=== PATIENT | female | born 1950 | race Caucasian/White ===

== ENCOUNTER 2016-11-07 13:51 | Emergency (ER) | payer MEDICARE ==
[2016-11-07 14:49] LABS: BASOPHILS 0.2 % (0-2); HEMATOCRIT 41.6 % (36.0-48.0); IMMATURE GRANULOCYTES 0.2 % (0-5); LYMPHOCYTES 44.9 % (15-50); MCH 30.7 pg (26.0-34.0); MCHC 36.1 g/dL (31.0-37.0); MCV 85.1 fL (80.0-100.0); MEAN PLATELET VOLUME 10.9 fL (7.4-10.4); MONOCYTES 6.5 % (2-11); NEUTROPHILS 47.2 % (40-80); PLATELET COUNT 130 10x3/uL (130-400); RBC 4.89 10x6/uL (4.00-5.40)
[2016-11-07 14:57] LABS: APPEARANCE CLEAR (CLEAR); BILIRUBIN NEGATIVE (NEGATIVE); COLOR YELLOW (YELLOW); GLUCOSE NEGATIVE (NEGATIVE); KETONE NEGATIVE (NEGATIVE); NITRITE NEGATIVE (NEGATIVE); PROTEIN TRACE mg/dL (NEGATIVE); SPECIFIC GRAVITY 1.025 (1.005-1.020); UROBILINOGEN NORMAL (NORMAL)
[2016-11-07 14:58] LABS: BACTERIA FEW /hpf (NONE SEEN); MUCUS >1+ /lpf (NONE SEEN); RED CELLS - URINE 0-5 /hpf (0-5); WHITE CELLS - URINE 0-5 /hpf (0-5)
[2016-11-07 15:13] LABS: ALBUMIN 4.2 g/dL (3.4-5.0); ANION GAP 16.4 mmol/L (8-16); BILIRUBIN - TOTAL 0.76 mg/dL (0.2-1.3); CALCIUM 10.6 mg/dL (8.5-10.1); CARBON DIOXIDE 25.3 mmol/L (21.0-32.0); CREATININE - SERUM 1.3 mg/dL (0.6-1.3); POTASSIUM - SERUM 3.7 mmol/L (3.5-5.1); PROTEIN - SERUM 8.2 g/dL (6.4-8.2)
== END 2016-11-07 19:25 | disposition home or self-care (01) ==
LOC: D.ER 13:51
PROVIDERS: Emergency Medicine
DX: K52.9 Noninfective gastroenteritis and colitis, unspecified (principal); F17.200 Nicotine dependence, unspecified, uncomplicated; I10 Essential (primary) hypertension

== ENCOUNTER 2017-03-17 10:13 | Day surgery (SDC) | payer MEDICARE ==
--- NOTE | ~2017-03-17 | OP ---
PATIENT NAME: GARRTET CLANCY MEDICAL RECORD: [id number] :46 LOCATION:[facility] ADMISSION DATE: SURGEON: JORDY PEREIRA MD DATE OF OPERATION: 03/17/2017 PREOPERATIVE DIAGNOSIS: Anal mass. POSTOPERATIVE DIAGNOSIS: Anal mass. PROCEDURE: Transanal excision of anal mass. SURGEON: Jordy Pereira MD ACCESS SERVICES REPRESENTATIVE: None. BLOOD LOSS: Minimal. ANESTHESIA: General. COMPLICATIONS: None. The patient was noted to have an anal mass on colonoscopy. This was overlying the hemorrhoid. OPERATIVE COURSE: The patient was conveyed to the operating room electively on 03/17/2017. General anesthesia was induced by the anesthesia staff. The patient was placed in the lithotomy position. The buttocks were taped laterally. The anus and perianal areas were sterilely prepped and draped. U-shaped anal retractors were inserted. The anal mass was easily identifiable and was overlying a hemorrhoid. The patient essentially underwent a single column hemorrhoidectomy, which was an excisional biopsy of this anal mass. The hemorrhoid was grasped. I excised the hemorrhoid utilizing the Harmonic scalpel. Meticulous hemostasis was achieved with the Harmonic scalpel. Submucosal flaps were created bluntly. I then closed the defect with a running-locking 3-0 Vicryl suture. Gelfoam was applied within the anus and lower rectum. A combination of sterile preparation and Marcaine were used to infiltrate the perianal tissues. A topical anesthetic cream was applied to the external hemorrhoids. The patient was then extubated and conveyed to post-anesthesia care unit where she was in stable condition. She will be dismissed home on an analgesic. I will see her in the office in 2 to 3 weeks to discuss the results of the biopsies. TRANSINT:[id number] Voice Confirmation ID: [id number] DOCUMENT ID: [id number] OPERATIVE REPORT [id number] GARRETT CLANCY ROBERT MD at 1019 CC: MANUEL GONZALEZ MD [id number] DICTATION DATE: 03/30/17 1044 ROOM SERVICE MANAGER: 03/30/17 1125 [facility] 03/17/17 [place] [address]
[2017-03-17] MEDS ORDERED: LISINOPRIL-HCTZ1 T13 PO (10:56)
[2017-03-17 10:59] VITALS: BP 117/73; BMI 24.0
[2017-03-17 11:16] LABS: HEMATOCRIT 42.5 % (36.0-48.0); HEMOGLOBIN 15.1 g/dL (12-16); MCH 31.2 pg (26.0-34.0); MCHC 35.5 g/dL (31.0-37.0); MCV 87.8 fL (80.0-100.0); MEAN PLATELET VOLUME 10.3 fL (7.4-10.4); RBC 4.84 10x6/uL (4.00-5.40); RDW 13.6 % (11.5-14.5); WBC 7.1 10x3/uL (4.8-10.8)
[2017-03-17 11:26] LABS: ANION GAP 15.3 mmol/L (8-16); CALCIUM 10.7 mg/dL (8.5-10.1); CARBON DIOXIDE 28.9 mmol/L (21.0-32.0); CREATININE - SERUM 1.4 mg/dL (0.6-1.3); POTASSIUM - SERUM 4.2 mmol/L (3.5-5.1)
== END 2017-03-17 18:15 | disposition home or self-care (01) ==
LOC: D.OPS 10:13
PROVIDERS: Anesthesiology
DX: K64.8 Other hemorrhoids (principal); K62.89 Other specified diseases of anus and rectum; F17.200 Nicotine dependence, unspecified, uncomplicated; I10 Essential (primary) hypertension; J44.9 Chronic obstructive pulmonary disease, unspecified; Z01.812 Encounter for preprocedural laboratory examination

== ENCOUNTER → 2017-06-05 09:37 | Outpatient (CLI) | payer MEDICARE ==
[~2017-06-05 09:37] MED LIST: LISINOPRIL-HCTZ1 T13 PO
== END | disposition home or self-care (01) ==
LOC: D.MRI 09:37
DX: R55 Syncope and collapse (principal)

== ENCOUNTER 2017-06-26 10:49 | Outpatient (CLI) | payer MEDICARE ==
[~2017-06-26] VITALS: Ht 157.5 cm; Wt 53.6 kg
[2017-06-26 11:52] LABS: BASOPHILS 0.2 % (0-2); EOSINOPHILS 1.8 % (0-7); HEMATOCRIT 37.6 % (36.0-48.0); HEMOGLOBIN 13.5 g/dL (12-16); IMMATURE GRANULOCYTES 0.2 % (0-5); LYMPHOCYTES 41.9 % (15-50); MCH 31.7 pg (26.0-34.0); MCHC 35.9 g/dL (31.0-37.0); MCV 88.3 fL (80.0-100.0); MEAN PLATELET VOLUME 9.8 fL (7.4-10.4); MONOCYTES 4.7 % (2-11); NEUTROPHILS 51.2 % (40-80); PLATELET COUNT 174 10x3/uL (130-400); RBC 4.26 10x6/uL (4.00-5.40); RDW 13.4 % (11.5-14.5); WBC 6.1 10x3/uL (4.8-10.8)
[2017-06-26 12:07] LABS: ALBUMIN 4.2 g/dL (3.4-5.0); ANION GAP 14.1 mmol/L (8-16); BILIRUBIN - TOTAL 0.85 mg/dL (0.2-1.3); CALCIUM 10.4 mg/dL (8.5-10.1); CARBON DIOXIDE 26.8 mmol/L (21.0-32.0); POTASSIUM - SERUM 3.9 mmol/L (3.5-5.1); PROTEIN - SERUM 8.6 g/dL (6.4-8.2)
[2017-06-26 12:19] LABS: THYROID STIMULATING HORMONE 0.84 uIU/mL (0.36-3.74)
[2017-06-26 14:18] VITALS: BP 130/79; Ht 157.5 cm; Wt 53.6 kg
== END 2017-06-26 15:14 | disposition home or self-care (01) ==
LOC: D.ER 10:49 → D.OPS 10:49 → EDSTATUS 14:00 → D.OPS 15:14
PROVIDERS: Physician Assistant
DX: K56.41 Fecal impaction (principal); I10 Essential (primary) hypertension; Z01.812 Encounter for preprocedural laboratory examination

== ENCOUNTER → 2018-04-19 09:42 | Outpatient (CLI) | payer OTHER ==
[2017-06-26 14:18] VITALS: BMI 21.6
== END | disposition home or self-care (01) ==
LOC: D.CT 04-18 10:30 → D.RAD 04-18 11:15 → D.CT 09:42
PROVIDERS: ATTEND Internal Medicine Gastroenterology
DX: R10.9 Unspecified abdominal pain (principal); R63.4 Abnormal weight loss; F17.200 Nicotine dependence, unspecified, uncomplicated

== ENCOUNTER → 2019-04-10 08:49 | Outpatient (CLI) | payer OTHER ==
[2019-03-21 21:35] VITALS: BMI 18.3
[~2019-04-10 08:49] MED LIST changes: +ASPIRIN81 MG PO; +LINZESS145 MCG PO; +NAMENDA10 MG PO; +NORVASC5 MG PO; +PRAVACHOL20 MG PO; +REMERON15 MG PO; +TYLENOL W/CODEI1 TAB PO; +VICKS VAPORUB O50 GM TOPICAL; +VOLTAREN100 GM TOPICAL
[2019-04-10 09:54] LABS: BASOPHILS 0.6 % (0-2); EOSINOPHILS 3.1 % (0-7); HEMATOCRIT 34.3 % (36.0-48.0); HEMOGLOBIN 11.4 g/dL (12-16); IMMATURE GRANULOCYTES 0.2 % (0-5); LYMPHOCYTES 36.9 % (15-50); MCH 30.5 pg (26.0-34.0); MCHC 33.2 g/dL (31.0-37.0); MCV 91.7 fL (80.0-100.0); MEAN PLATELET VOLUME 9.8 fL (7.4-10.4); NEUTROPHILS 53.2 % (40-80); PLATELET COUNT 232 10x3/uL (130-400); RBC 3.74 10x6/uL (4.00-5.40); RDW 15.3 % (11.5-14.5); WBC 5.2 10x3/uL (4.8-10.8)
== END | disposition home or self-care (01) ==
LOC: D.LAB 08:49
PROVIDERS: ATTEND Internal Medicine Gastroenterology
DX: K92.2 Gastrointestinal hemorrhage, unspecified (principal)

== ENCOUNTER 2020-05-26 13:53 | Emergency (ER) | payer OTHER ==
[~2020-05-26] VITALS: Ht 165.1 cm; Wt 62.7 kg
[~2020-05-26 13:53] MED LIST changes: +ATIVAN0.5 MG PO; +FOLIC ACID1 MG PO; +LORAZEPAM1 MG/0.5 M SL; +MIRALAX17 GM PO; +Megace ES [CHEMO] PO; +NAMENDA5 MG PO; +NORVASC10 MG PO; +PRAVASTATIN SOD10 MG PO; +SEROQUEL25 MG PO; +THERAGRAN M [BK1 TAB PO; +VITAMIN D PO; +ZOLOFT50 MG PO
[2020-05-26 14:01] VITALS: Ht 165.1 cm; Wt 62.7 kg
[2020-05-26 14:24] LABS: BASOPHILS 0.2 % (0-2); EOSINOPHILS 1.3 % (0-7); HEMATOCRIT 33.2 % (36.0-48.0); HEMOGLOBIN 11.3 g/dL (12-16); IMMATURE GRANULOCYTES 0.5 % (0-5); LYMPHOCYTE ABS# 2.64 10x3/uL (1.18-3.74); LYMPHOCYTES 23.3 % (15-50); MCH 30.5 pg (26.0-34.0); MCV 89.5 fL (80.0-100.0); MEAN PLATELET VOLUME 10.6 fL (7.4-10.4); MONOCYTES 6.4 % (2-11); NEUTROPHIL ABS# 7.72 10x3/uL (1.56-6.13); NEUTROPHILS 68.3 % (40-80); PLATELET COUNT 266 10x3/uL (130-400); RBC 3.71 10x6/uL (4.00-5.40); RDW 15.1 % (11.5-14.5); WBC 11.3 10x3/uL (4.8-10.8)
[2020-05-26 15:16] LABS: ANION GAP 15.4 mmol/L (8-16); CALCIUM 10.3 mg/dL (8.5-10.1); CARBON DIOXIDE 24.2 mmol/L (21.0-32.0); CREATININE - SERUM 1.4 mg/dL (0.6-1.3); POTASSIUM - SERUM 3.6 mmol/L (3.5-5.1)
[2020-05-26 15:16] LABS: BILIRUBIN NEGATIVE (NEGATIVE); KETONE NEGATIVE (NEGATIVE); NITRITE NEGATIVE (NEGATIVE); UROBILINOGEN NORMAL mg/dL (< 2)
[2020-05-26 15:17] LABS: BACTERIA MANY HPF (NONE SEEN); SQUAMOUS EPITHELIAL 0-5 HPF (0-4); WHITE CELLS - URINE 25-50 HPF (0-4)
[2020-05-26 15:21] LABS: ALBUMIN 3.4 g/dL (3.4-5.0); BILIRUBIN - TOTAL 0.6 mg/dL (0.2-1.3)
[2020-05-26 15:22] LABS: TROPONIN-I 0.016 ng/mL (0.000-0.060)
[2020-05-26] MEDS ORDERED: LEVOFLOXACIN500 MG PO ×2 (17:29→17:34)
[2020-05-26 20:24] VITALS: BP 127/67
== END 2020-05-26 20:25 | disposition home or self-care (01) ==
LOC: D.ER 13:53
PROVIDERS: Family Medicine
DX: N39.0 Urinary tract infection, site not specified (principal); R10.9 Unspecified abdominal pain; K59.00 Constipation, unspecified; R11.2 Nausea with vomiting, unspecified; Z86.73 Personal history of transient ischemic attack (TIA), and cerebral infarction without residual deficits; I10 Essential (primary) hypertension

== ENCOUNTER 2020-07-10 19:30 | Inpatient (IN) | payer MEDICARE ==
[~2020-07-10 19:30] MED LIST changes: +LEVOFLOXACIN500 MG PO
[2020-07-10 20:00] VITALS: BP 145/70
--- NOTE | 2020-07-10 20:00 | NUR ---
PT ADMIT TO UNIT FOR AGGRESSION AT HER HALFWAY. PT IS A DNR AND PAPERWORK IS IN THE CHART. ATTEMPTED TO GET CONSENT FOR HER [facility] AT [phone]. LEFT VOICEMAIL. PT ARRIVED TO UNIT WITH EMS. SWINGING AND PUNCHING AT STAFF THEY ATTEMPTED TO ASSIST HER INTO A CHAIR. UNABLE TO REDIRECT. UNABLE TO FOLLOW COMMANDS. PACING AND ATTEMPTING TO BITE STAFF. ADMINISTERED PRN HALDOL AND ATIVAN FOR UNSAFE PSYCHOTIC BEHAVIOR AND ANXIETY. OBSERVED HER ATTEMPTING TO PICK AT THE FLOOR TILES. PT OBSERVED IN THE HALLWAY DEFACATING IN THE FLOOR. ASSISTED PT WITH CLEANING SELF UP AND PLACED IN BED. MONITOR FOR SAFETY.
--- NOTE | 2020-07-10 20:29 | NUR ---
DR DODD CALLED TO REQUEST THAT HE BE THIS [facility] PHYSICIAN.
--- NOTE | 2020-07-10 20:30 | NUR ---
PT STILL PACING BUT LESS AGGRESSIVE WITH REDIRECTION. NO DISTRESS NOTED. YELLS AT STAFF WITH ASSISTANCE.
[2020-07-10] MEDS ORDERED: BUSPAR5 MG PO (20:52)
[2020-07-10] MEDS ORDERED: VITAMIN D325 MC1 PO (20:52)
[2020-07-10] MEDS ORDERED: REMERON15 MG PO (20:53)
[2020-07-11 00:35] VITALS: BP 145/70; BMI 25.0
[2020-07-11 08:32] LABS: BASOPHILS 0.3 % (0-2); EOSINOPHILS 0.3 % (0-7); HEMATOCRIT 37.7 % (36.0-48.0); HEMOGLOBIN 12.6 g/dL (12-16); LYMPHOCYTES 24.1 % (15-50); MCH 33.7 pg (26.0-34.0); MCHC 33.4 g/dL (31.0-37.0); MCV 101.2 fL (80.0-100.0); MEAN PLATELET VOLUME 7.3 fL (7.4-10.4); MONOCYTES 5.3 % (2-11); PLATELET COUNT 236 10x3/uL (130-400); RBC 3.73 10x6/uL (4.00-5.40); RDW 17.4 % (11.5-14.5); WBC 9.5 10x3/uL (4.8-10.8)
[2020-07-11 09:39] VITALS: BP 142/90
[2020-07-11 09:41] LABS: ALBUMIN 4.6 g/dL (3.4-5.0); ANION GAP 16.8 mmol/L (8-16); BILIRUBIN - TOTAL 0.32 mg/dL (0.2-1.3); CALCIUM 9.9 mg/dL (8.5-10.1); CARBON DIOXIDE 22.6 mmol/L (21.0-32.0); CHOL - HDL RATIO 2.3 ratio (2.3-4.1); CREATININE - SERUM 1.2 mg/dL (0.6-1.3); POTASSIUM - SERUM 4.4 mmol/L (3.5-5.1); THYROID STIMULATING HORMONE 0.82 uIU/mL (0.36-3.74)
[2020-07-11 13:00] VITALS: Wt 61.9 kg
--- NOTE | 2020-07-11 18:14 | NUR ---
ALERT, CALM, COOPERATIVE, MED COMPLIANT. AT MEAL TIME, PATIENT HAS BEEN NOTED TO REACH AND GRAB OTHER PATIENT'S TRAYS, REQUIRING RE-DIRECTION. NO ADVERSE REACTION TO MEDS. NO AGGRESSION SINCE EARLIER IN THE SHIFT. CONTINUE PLAN OF CARE OUTLINED, MONITORING FOR AGGRESSIVE ACTS.
[2020-07-11 22:23] VITALS: BP 147/67
--- NOTE | 2020-07-11 23:08 | NUR ---
PT IS ALERT AND ORIENTED TO SELF ONLY. POOR INSIGHT INTO HER SITUATION. SHE IS RECEIVED IN THE HALLWAY OUTSIDE THE NURSES STATION IN A GERICHAIR. SHE IS RESTLESS AND ATTEMPTS TO GET OUT OF THE CHAIR WITHOUT ASSIST. RESISTANT TO REDIRECTION. MISINTERPRETS STAFFS ASSISTANCE. COMPLIANT WITH ALL MEDICATIONS. MONITOR FOR SAFETY.
[2020-07-12 09:21] VITALS: BP 173/94
[2020-07-12 09:44] VITALS: BP 173/87
--- NOTE | 2020-07-12 16:10 | NUR ---
VERY AGGRESSIVE WITH STAFF,HITTING,WILL NOT REDIRECT.ATIVAN 0.5MG AND HALDOL 2MG IM GIVEN PER ORDERS.
--- NOTE | 2020-07-12 16:40 | NUR ---
GOOD RESPONSE TO ATIVAN AND HALDOL.RESTING QUIETLY IN RECLINER.
--- NOTE | 2020-07-12 17:08 | NUR ---
Rec'd patient this am in the hallway in a reclining w/c. She is non-compliant with medications and will spit them at the staff or take her fingers and take the med out or lick her fingers over and over. Her spouse Al called at 0745 requested her condition, password verified, and he states she likes to sleep on the floo and she does not use utensils but eats everything with her fingers. She is a/o to person only. She sat with the group but cognitively under to participate today. She is restless today.
--- NOTE | 2020-07-12 20:06 | NUR ---
RECEIVED IN HALLWAY OUTSIDE OF NURSES STATION. SITTING WITH PEERS AT HER SIDE. CALM AND COOPERATIVE WITH CARE AND ASSESSMENT. NO SIGNS OF AGGRESSION. REDIRECT AND REORIENT NEEDED. CONTINUES TO SIT CALMLY IN HALLWAY. CONTINUE PLAN OF CARE.
[2020-07-12 21:48] VITALS: BP 123/71
--- NOTE | 2020-07-13 08:00 | NUR ---
REC'D PT IN RECLINING CHAIR BY THE NURSES STATION. AWAKE AND ALERT TO PERSON ONLY. ASSESSMENT COMPLETED. PT IS AGGRESSIVE WITH CARE. PT ATTEMPTS TO SLAP AND BITE AT STAFF. REDIRECT AND REORIENT NEEDED. PRESCRIBED MEDICATIONS PROVIDED ORDERED. MED COMPLINAT. FALL PRECAUTIONS IN PLACE. WILL CPOC.
--- NOTE | 2020-07-13 08:58 | NUR ---
fruit harvest worker got a call phone call from Mr. Chaves requesting update on patient. fruit harvest worker discussed behaviors patient had demonstrated since intake. fruit harvest worker went over visitation guidelines and suggested visitations do not start until patient becomes more stable. Mr. Chaves stated [facility] will accept patient back. No other needs were voiced at this time.
--- NOTE | 2020-07-13 19:55 | NUR ---
RECEIVED IN HALLWAY. SITTING QUIETLY WITH PEERS AT HER SIDE. CALM AND COOPERATIVE WITH CARE AND ASSESSMENT. NO SIGNS OF AGGRESSION. REDIRECT AND REORIENT NEEDED. CONTINUES TO SIT CALMLY IN DAYROOM. CONTINUE PLAN OF CARE.
[2020-07-13 20:00] VITALS: BP 157/69
[2020-07-14 07:15] LABS: RAPID PLASMA REAGIN Non Reactive (Non Reactive)
--- NOTE | 2020-07-14 08:00 | NUR ---
REC'D PT IN HALLWAY SITTING IN W/C BY THE NURSES STATION. AWAKE AND ALERT TO PERSON ONLY. CALM AND COOPERATIVE WITH ASSESSMENT. PRESCRIBED MEDS PROVIDED ODERED. MED COMPLIANT. PT IS AGGRESSIVE, COMBATIVE, AND EASILY AGITATED. REDIRECT AND REORIENT NEEDED. UNABLE TO REDIRECT AT TIMES. FALL PRECAUTIONS IN PLACE FOR SAFETY. WILL CPOC.
[2020-07-14 08:02] VITALS: BP 169/91
--- NOTE | 2020-07-14 11:52 | PN ---
PATIENT:GARRETT CLANCY MEDICAL RECORD: [id number] LOCATION:[facility] ADMISSION DATE: 07/10/20 PROGRESS NOTE DATE OF SERVICE: 07/13/2020 SUBJECTIVE: The patient's case was discussed with staff. She has no new complaint. OBJECTIVE: The patient is only oriented to person. She has been very agitated. She is disorganized with almost no insight about her situation. She has been extremely agitated at the detention, biting, fighting with staff members, refusing to sleep in a bed and insisting to sleep on the floor, and defecating on the floor, becoming combative when the staff tried to remove her from the soiled area. Since she has been here, she has required daily p.r.n. medications in addition to the scheduled medications because of her behaviors. ASSESSMENT: Vascular dementia. PLAN: The patient is going to be treated with Geodon on a scheduled basis. The Seroquel has not been effective and will be discontinued. TRANSINT:[id number] Voice Confirmation ID: [id number] DOCUMENT ID: [id number] SENG HERNÁNDEZ MD at 1152 CC: [id number] DICTATION DATE: 07/13/20 1554 PASTE UP ARTIST: 07/13/20 2019 [place] [address]
--- NOTE | 2020-07-14 19:59 | NUR ---
RECEIVED IN DAYROOM. SITTING THE TABLE WITH PEERS. CALM AND COOPERATIVE WITH CARE AND ASSESSMENT. NO SIGNS OF AGGRESSION. REDIRECT AND REORIENT NEEDED. CONTINUES TO SIT CALMLY IN DAYROOM. CONTINUE PLAN OF CARE.
--- NOTE | 2020-07-15 08:11 | NUR ---
REC'D PT IN HALLWAY SITTING IN RECLINING CHAIR. AWAKE AND ALERT TO PERSON ONLY. CALM AND COOPERATIVE WITH ASSESSMENT. PT HAS LITTLE TO NO INSIGHT INTO HER SITUATION. PT IS CONFUSED AND HAS DIFFICULTY WITH VERBAL INSTRUCTIONS. REDIRECT AND REORIENT NEEDED. NO AGGRESSION NOTED AT THIS TIME. FALL PRECAUTIONS IN PLACE. WILL CPOC.
--- NOTE | 2020-07-15 13:54 | NUR ---
Nutrition Re-Assessment Diet: Regular PO intake: 100% x last 8 meals Last BM: 07/11/20 Wt: 146# (07/12/20); Admit Wt: 150# (07/10/20)- noted -4#, will continue to monitor. Meds noted: travis hernandez Labs reviewed Estimated nutrition needs: 1700-2040cal (25-30kcal/kg Act), 75-88gms protein (1.1-1.3gms/kg), 1700-2050mL fluid (or per MD) Nutrition diagnosis: Self feeding difficulty r/t foods must be cut into bite sizes, she does not know how to use a spoon or fork AEB MD notes. Nutrition goals: -PO intake =/>75% meals -Meet fluid needs without fluid overload -Stable weight DHS Recommendations/Interventions: -Recommend continue Regular diet with foods cut to bite size. Will continue to honor food preferences. -RD will continue to monitor PO intake and wt trend. -Offer oral nutrition supplements if PO intake trends <65%. -RD will follow-up within 7 days.
--- NOTE | 2020-07-15 14:02 | PN ---
PATIENT:GARRETT CLANCY MEDICAL RECORD: [id number] LOCATION:[facility] ADMISSION DATE: 07/10/20 PROGRESS NOTE DATE OF SERVICE: 07/14/2020 SUBJECTIVE: The patient's case was discussed with staff. She has no new complaint. OBJECTIVE: The patient has been very disorganized. She is only oriented to person. She has been hitting, biting, and aggressive with staff. ASSESSMENT: Dementia. PLAN:. The patient does not have an urinalysis because she would not allow us to check one. Her WBC count is within normal limits. She has no complaints or symptoms of a urinary tract infection and in my opinion, it would be traumatic to hold her and catheterize her simply as a means of screening. The patient is experiencing behavioral disruption secondary to disease progression and this is not in my opinion secondary to a urinary tract infection. TRANSINT:[id number] Voice Confirmation ID: [id number] DOCUMENT ID: [id number] SENG HERNÁNDEZ MD at 1402 CC: [id number] DICTATION DATE: 07/14/20 1530 NUCLEAR CHEMISTRY TECHNICIAN: 07/15/20 0023 ADM IN [facility] [address] [place] [address]
--- NOTE | 2020-07-15 16:00 | NUR ---
PATIENT BIT ANOTHER PATIENT ON THE ARM. PATIENT UNABLE TO BE REDIRECTED. PATIENTS SEPERATED FROM EACH OTHER.
[2020-07-15 20:00] VITALS: BP 144/71
--- NOTE | 2020-07-15 21:20 | NUR ---
PT IS ALERT AND ORIENTED TO SELF ONLY. RECEIVED IN THE HALLWAY OUTSIDE OF THE NURSES STATION IN A GERICHAIR. CALM AND COMPLIANT WITH MEDICATIONS. PT OBSERVED CHEWING STYROFOAM CUP. REMOVED CUP FROM PT AND HAD PT SPIT OUT TWO PIECES OF THE CUP. DIFFICULT TO REDIRECT. GARBLED SPEECH. MONITOR FOR SAFETY.
--- NOTE | 2020-07-16 08:14 | NUR ---
Patient is kicking, slapping at, and attempting to bite staff. She is not redirectable and cannot follow directions. After redirection with foods, fluids, and one to one, per MD order...Ativan and Haldol IM given.
--- NOTE | 2020-07-16 14:13 | NUR ---
Rec'd patient this am sitting in the hallway in a reclining w/c. She was med compliant and took her meds crushed and placed in applesauce. She became aggressvie this am as she was kicking, slapping, and attempting to bite at staff. She was nonredirectable. Ativen and Haldol IM given. She will sit at the table in the dayroom and will attempt to lick the table, whe contantly is licking her fingers, she also will try to lick and eat her clothing. She is disorientated to place, time, and situation. she cannot follow any directons. She is a fall risk. She has multi bruises on various parts of her upper and lower ext. She did not attend group.
--- NOTE | 2020-07-16 16:51 | PN ---
PATIENT:GARRETT CLANCY MEDICAL RECORD: [id number] LOCATION:[facility] ADMISSION DATE: 07/10/20 PROGRESS NOTE DATE OF SERVICE: 07/15/2020 SUBJECTIVE: The patient's case was discussed with staff. She has no new complaint. OBJECTIVE: The patient is severely impaired cognitively. She has been trying to bite the patient next to her. She does not appear to be angry or have any sort of a conscious deliberate reason for doing this and I cannot rationally discuss this with her because of her advanced dementia. ASSESSMENT: Vascular dementia. PLAN: This patient's situation is grave. The disease process is advanced. At this point, my treatment goals would be to make her manageable in a long-term care setting and hopefully just have her aggressive behaviors confined a personal care. I have reviewed her medicines and will maintain them for today. TRANSINT:[id number] Voice Confirmation ID: [id number] DOCUMENT ID: [id number] SENG HERNÁNDEZ MD at 1651 CC: [id number] DICTATION DATE: 07/15/20 1616 PATTERNMAKER APPRENTICE WOOD: 07/15/20 1717 ADM IN [facility] [address] [place] [address]
--- NOTE | 2020-07-16 18:57 | NUR ---
STAFF MEMBERS 3X TO SHOWER PT AT THIS TIME. PT WAS RESISTIVE WITH CARE, COMBATIVE. PT CONT TO ATTEMPT TO FALL FORWARD.
--- NOTE | 2020-07-16 19:26 | NUR ---
RECEIVED IN HALLWAY OUTSIDE OF NURSES STATION WITH EYES CLOSED. CALM AND COOPERATIVE WITH CARE AND ASSESSMENT. NO SIGNS OF AGGRESSION. REDIRECT AND REORIENT NEEDED. CONTINUES TO SIT CALMLY IN HALLWAY. CONTINUE PLAN OF CARE.
[2020-07-16 20:00] VITALS: BP 132/81
--- NOTE | 2020-07-17 18:37 | NUR ---
PT SITTING IN CHAIR AT THIS TIME. NO AGGRESSION NOTED. ALERT TO SELF ONLY. CONFUSED. REDIRECT AND REORIENT. PT IS DIFFICULT TO REDIRECT. NO INSIGHT TO SITUATION NOTED. ATTEMPTS TO EAT ANYTHING IN REACH. UNABLE TO REDIRECT THIS BEHAVIOR. CAN NOT MAKE NEEDS KNOWN. REQUIRES FULL ASSISTANCE WITH ADLS. CONT TO ENCOURAGE MEALS AND FLUIDS. CHAIR ALARM IN PLACE AND ACTIVE. WILL CONT PLAN OF CARE.
--- NOTE | 2020-07-17 19:24 | NUR ---
RECEIVED IN HALLWAY OUTSIDE OF NURSES STATION. SITTING IN A RECLINING CHAIR. RESTLESS. RESISTANT TO REDIRECTION AT TIMES. COOPERATIVE WITH CARE AND ASSESSMENT. NO SIGNS OF AGGRESSION. REDIRECT AND REORIENT NEEDED. CONTINUES TO SIT IN RECLINER IN HALLWAY. CONTINUE PLAN OF CARE.
[2020-07-17 20:00] VITALS: BP 119/60
--- NOTE | 2020-07-18 17:55 | NUR ---
pt sitting in chair. restless. confused. alert to self only. unable to redirect due to low cognitive ablitity. pt does not understand simple commands. staff monitors items given to pt due to pica. compliant with crushed meds, vitals and assessments. can not make needs known. requires complete assistance with adls. chair alarm in place and active. will cont plan of care.
[2020-07-18 20:23] VITALS: BP 109/67
--- NOTE | 2020-07-18 22:38 | NUR ---
PT LAYING IN BED WITH EYES CLOSED. PT IS CALM AND COOPERATIVE AT THIS TIME. CONFUSED. ALERT TO SELF ONLY. CAN NOT AMBULATE. REQUIRES ASSISTANCE WITH ADLS. NO ATTEMPT TO BITE STAFF. POOR REDIRECTION. COMPLIANT WITH CRUSHED MEDS, VITALS AND ASSESSMENTS. BED ALARM IN PLACE AND ACTIVE. WILL CONT PLAN OF CARE.
--- NOTE | 2020-07-19 07:44 | NUR ---
REC'D PT SITTING IN RECLINING CHAIR. PT IS ATTEMPTING TO EAT OR CHEW ANYTHING IN SIGHT AT THIS TIME. HARD TO REDIRECT AT TIMES. REDIRECT AND REORIENT NEEDED. ASSESSMENT COMPLETED AT THIS TIME. AWAKE AND ALERT TO PERSON ONLY. PT HAS LITTLE TO NO INSIGHT INTO HER SITUATION AT THIS TIME. FALL PRECAUTIONS IN PACE FOR SAFETY. WILL CPOC.
--- NOTE | 2020-07-19 19:51 | NUR ---
RECEIVED IN BEDROOM. RESTING IN BED WITH EYES CLOSED. RESPONSD TO VOICE. CALM AND COOPERATIVE WITH CARE AND ASSESSMENT. NO SIGNS OF AGGRESSION. REDIRECT AND REORIENT NEEDED. CONTINUES TO REST QUIETLY IN BED. CONTINUE PLAN OF CARE.
[2020-07-19 20:36] VITALS: BP 113/65
--- NOTE | 2020-07-20 08:14 | NUR ---
REC'D PT IN HALLWAY RESTING IN RECLINING CHAIR. RESPONDS TO VERBAL STIMULI. ALERT TO PERSON ONLY. CALM AND COOPERATIVE WITH ASSESSMENT AT THIS TIME. PT IS CONFUSED. PT HAS LITTLE TO NO INSIGHT INTO HER SITUATION. PT ATTENDS TO CHEW ON ANYTHING IN SIGHT. HARD TO REDIRECT AT TIMES. FALL PRECAUTIONS IN PLACE FOR SAFETY. ALARM IN PLACE AND WORKING. WILL CPOC.
--- NOTE | 2020-07-20 15:46 | PN ---
PATIENT:GARRETT CLANCY MEDICAL RECORD: [id number] LOCATION:[facility] ADMISSION DATE: 07/10/20 PROGRESS NOTE DATE OF SERVICE: 07/16/2020 SUBJECTIVE: The patient's case was discussed with staff. She has no new complaint. OBJECTIVE: The patient denies intent to harm herself or others. She does tolerate her medicines well. She has unfortunately been very agitated. She has required multiple p.r.n. doses of medications. The patient's dementia is very advanced. ASSESSMENT: Dementia. PLAN: As mentioned multiple times, the patient's dementia is very advanced. She is requiring multiple p.r.n. doses of medicine to control her behavior and these behaviors are not limited to personal care. She is aggressive with those around her. She has been eating styrofoam cups and plates and has to be supervised constantly. She tried to eat a plastic fork today. Her prognosis is exceedingly poor and the goal of this treatment will be to use to medicate her sufficiently such that she can be managed in a long-term care setting and to do so without causing excessive sedation that would lead to a pneumonia or some other undesirable side effect. Because of her behaviors today, I am going to increase her Klonopin slightly. I am reluctant to increase the Geodon beyond 40 mg a day, but if I feel that a higher dose of antipsychotic is necessary, I will probably change her to Seroquel. TRANSINT:[id number] Voice Confirmation ID: [id number] DOCUMENT ID: [id number] SENG HERNÁNDEZ MD at 1546 CC: [id number] DICTATION DATE: 07/16/201716 INSPECTOR PENETRANT: 07/16/20 1837 ADM IN [facility] [address] [place] [address]
[2020-07-20 20:00] VITALS: BP 123/68
--- NOTE | 2020-07-20 20:29 | NUR ---
RECEIVED IN DAYROOM. SITTING IN A CHAIR WITH PEERS AT HER SIDE. CALM AND COOPERATIVE WITH CARE AND ASSESSMENT. NO SIGNS OF AGGRESSION. REDIRECT AND REORIENT NEEDED. CONTINUE PLAN OF CARE.
--- NOTE | 2020-07-21 12:01 | NUR ---
REC'D PT IN HALLWAY SITTING IN RECLINING CHAIR. AWAKE AND ALERT TO PERSON ONLY. CALM AND COOPERATIVE WITH ASSESSMENT. PRESCRIBED MEDS PROVIDED ORDERED. MED COMPLIANT. PT COMBATIVE [facility] STAFF DURING CARE AND SHOWER THIS MORNING. REDIRECT AND REORIENT NEEDED. FALL PRECAUTIONS IN PLACE FOR SAFETY. WILL CPOC.
--- NOTE | 2020-07-21 14:41 | PN ---
PATIENT:GARRETT CLANCY MEDICAL RECORD: [id number] [facility] AD[facility]ION DATE: 07/10/20 PROGRESS NOTE DATE OF SERVICE: 07/20/2020 The patient's case was discussed with staff. She has no new complaint. OBJECTIVE: The patient denies intent to harm herself or others. She generally tolerates her medicines well. She is sleeping and eating well. PLAN: I am going to reduce the scheduled dose of Klonopin slightly. TRANSINT:[id number] Voice Confirmation ID: [id number] DOCUMENT ID: [id number] SENG HERNÁNDEZ MD at 1441 CC: [id number] DICTATION DATE: 07/20/20 1653 EXECUTIVE SECRETARY SOCIAL WELFARE: 07/20/20 2318 ADM IN [place] [id number] [place] [address]
--- NOTE | 2020-07-21 16:45 | NUR ---
parish worker met with patient's [id number]-ih-lya and discussed patient's condition as of date. parish worker discussed disease progression, decreased aggression, and patient being at this stage of severe dementia. parish worker explained that patient will eat items that are in front of her if allowed such as a Styrofoam cup or plastic. parish worker stated state paperwork was done to assist patient going back to custodial today. parish worker also stated [facility] is [facility] to [facility] patient back. Patient continues to be aggressive with ADLs however the aggressive episodes are not as extreme. Patient's [id number] was feeding patient Jell-O at the time of the meeting and patient was receiving it well. No other needs were voiced at this time.
--- NOTE | 2020-07-21 19:29 | NUR ---
RECEIVED IN HALLWAY OUTSIDE OF NURSES STATION. RESTING EYES CLOSED IN RECLINER. ATTEMPTS TO HIT AND BITE DURING CARE. REDIRECT AND REORIENT NEEDED. CONTINUES TO SIT IN RECLINER. CONTINUE PLAN OF CARE.
[2020-07-21 20:00] VITALS: BP 117/75
[2020-07-22 08:00] VITALS: BP 117/81
--- NOTE | 2020-07-22 09:52 | NUR ---
Nutrition Re-Assessment Diet: Regular PO intake: 75-100% most meals Last BM: 07/18/20 x 2 Wt: 139.8# (07/19/20); Admit Wt: 150# (07/10/20)- noted -10# weight change, however RD questions accuracy of admit weight. Weight history reviewed and noted that patient was ~138-143# last hospital stay vs fluid status changes. Meds noted: probiotics, linzess, miralax No new chem labs Estimated nutrition needs: 1600-1925kcal (25-30 Act), 70-83gms protein (1.1-1.3gms/kg), 1600-1925mL fluid (or per MD) Nutrition diagnosis: Unintented weight loss r/t unknown cause at this time fluid vs inaccurate weight vs actual weight loss AEB recorded weight of -10.2# since admit. Nutrition goals: -PO intake =/>75% meals -Meet fluid needs without fluid overload -Dry weight stable Recommendations/Interventions: -Recommend continue current diet and foods cut as needed. Will continue to honor food preferences. -RD will continue to monitor PO intake and wt trend -RD will follow-up within 7 days.
--- NOTE | 2020-07-22 12:10 | NUR ---
Rec'd patient this am sitting up in the hallway in a reclining w/c. She has been med compliant and takes meds crushed and placed in food. She is a/o to name as she will look at you when her name is called. She speaks in a low toned, muffuled voice that it is diff. to understand her. She sits and often moans. She attempts to put different objects into her mouth such as her gown or blankets and she also will use her finger to wipe the table and then will lick the finger. She has taken a nap this morning and has set with the group but cannot participate. She is not able to be directed or redirected. ABT eye drops for conjuctivities given this am. She has scattered brusing on her uppper and lower exts. She is combative with ADL care and at any point she feels she is being pressured to complete a task. She will occ. attempt to undress herself and staff will attempt to redirect her and will offer positive feedback when behavior is attempted.
--- NOTE | 2020-07-22 15:23 | NUR ---
JOSE HARVEY CALLED TO CHECK ON PT AT THIS TIME.
--- NOTE | 2020-07-22 15:35 | PN ---
PATIENT:GARRETT CLANCY MEDICAL RECORD: [id number] LOCATION:[facility] ADMISSION DATE: 07/10/20 PROGRESS NOTE DATE OF SERVICE: 07/21/2020 SUBJECTIVE: The patient's case was discussed with staff. She has no new complaint. OBJECTIVE: The patient is confused, but has not been aggressive today. She is sleeping and eating well, and it appears that her agitation is primarily for the past day at least exclusively limited to personal care. ASSESSMENT: Vascular dementia. PLAN: I have reviewed current medicines, and given the advanced state of her dementia if combativeness and agitation restricted to only personal care, I intend to probably leave these medicines as they are and would anticipate transitioning her out of the hospital soon. TRANSINT:[id number] Voice Confirmation ID: [id number] DOCUMENT ID: [id number] SENG HERNÁNDEZ MD at 1535 CC: [id number] DICTATION DATE: 07/21/20 1546 JAPANESE TUTOR: 07/21/20 1636 ADM IN [facility] [address] [place] [id number]
--- NOTE | 2020-07-22 17:58 | NUR ---
She has displayed combative behaviors today.
[2020-07-22 20:00] VITALS: BP 128/90
--- NOTE | 2020-07-23 02:21 | NUR ---
B)RECEIVED PATIENT SITTING OUTSIDE THE NURSE'S STATION. RESTLESS AND WILL THROW HER LEGS OVER THE CHAIR ARMS. CONFUSED AND ORIENTED TO SELF ONLY. WITHDRAWN AND DOES NOT INTERACT WITH OTHERS. DOES NOT FOLLOW TOPIC OF CONVERSATION IE "YEAH BECAUSE THEY CAN'T THEM. I DON'T KNOW THAT I'M SORRY. PUTTING HER FINGERS IN HER MOTH. DIFFICULTY FOLLOWING VERBAL INSTRUCTION. I)ADMINISTER MEDS AND MONITOR COMPLIANCE. REORIENT NEEDED. R)MED COMPLIANT. REQUIRES CRUSHED. POOR REORIENTATION DUE TO IMPAIRED ABILITY TO COMPREHEND, PROCESS AND RETAIN INFORMATION. P)CONTINUE POC AND PROVIDE SAFE ENVIRONMENT.
[2020-07-23 08:42] VITALS: BP 116/53
--- NOTE | 2020-07-23 12:49 | NUR ---
Rec'd patient this am sitting in a reclining w/c in the hallway. She is med compliant and takes her meds crushed in foods. She is a/o to person only. She attempts to eat and chew on her gown, linen, or syrofoam. She is not directable or redirectable. She is very confused. She can be combative with ADL care. She sits during group but participates very little. She naps ofte.
--- NOTE | 2020-07-23 14:48 | PN ---
PATIENT:GARRETT CLANCY MEDICAL RECORD: [id number] LOCATION:[facility] ADMISSION DATE: 07/10/20 PROGRESS NOTE DATE OF SERVICE: 07/22/2020 SUBJECTIVE: The patient's case was discussed with staff. She has no new complaint. OBJECTIVE: The patient slept very well last night. She is eating adequately and denies that she would seek to harm herself or others. Her Klonopin is perhaps a little strong and I am going to reduce it. ASSESSMENT: Vascular dementia. PLAN: The patient's Klonopin will be tapered slightly. I am going to maintain her on her other medications. TRANSINT:[id number] Voice Confirmation ID: [id number] DOCUMENT ID: [id number] SENG HERNÁNDEZ MD at 1448 CC: [id number] DICTATION DATE: 07/22/20 1616 HUMAN RESOURCES RECEPTIONIST: 07/22/20 1804 ADM IN [place] [id number] [place] [address]
--- NOTE | 2020-07-23 15:06 | NUR ---
VITAL SIGNS: B/P: 133/75, P: 90, R: 20, T:97.5, 02: 95%. PUPILS ROUND AND EQUAL 2 MM. ICEPACK TO FOREHEAD.
--- NOTE | 2020-07-23 15:07 | NUR ---
pt noted on pt on left side. knot noted to left forehead. pt can not voice pain. Ice pack held to forehead to assist with swelling. staff assisted pt into chair. contacted Alex Galindo APRN. awaiting callback. nurse notified unit assistant. nurse called spouse Gilmar Chaves in regards to pt fall at this time. nurse stated when any new orders would be avaliable this nurse would notify him of information. he verbalizied understanding. he stated she had been having really bad falls and she moves quick. he stated he would be here for visitation. nurse notified of injuries to left forehead. he voiced understanding.
--- NOTE | 2020-07-23 15:49 | NUR ---
NEUROCHECKS VITAL SIGNS: 115/53, P: 90. NO S/SX OF PAIN NOTED.
[2020-07-23 19:30] VITALS: BP 138/87
--- NOTE | 2020-07-24 02:15 | NUR ---
B) Patient is alert and oriented to person, calm and quiet this shift, patient fell on previous shift and has a bruise on her left forehead, I) Adminstered scheduled medications as ordered, Neuro checks, [id number] for safety, R) Mediaction compliant, resting now quietly in her bed, P) Continue plan of care.
[2020-07-24 08:00] VITALS: BP 156/70
--- NOTE | 2020-07-24 13:38 | PN ---
PATIENT:GARRETT CLANCY MEDICAL RECORD: [id number] LOCATION:[facility] ADMISSION DATE: 07/10/20 PROGRESS NOTE DATE OF SERVICE: 07/23/2020 SUBJECTIVE: The patient's case was discussed with staff. She has no new complaint. OBJECTIVE: The patient is only oriented to person. Her dementia is advanced. She is sleeping reasonably well and is eating adequately. She has been somewhat agitated, but not to a level that is required p.r.n. medication. ASSESSMENT: Vascular dementia. PLAN: Current medicines have been reviewed and will be maintained. Her long-term prognosis is guarded. TRANSINT:[id number] Voice Confirmation ID: [id number] DOCUMENT ID: [id number] SENG HERNÁNDEZ MD at 1338 CC: [id number] DICTATION DATE: 07/23/20 1637 CLAY CARMAN: 07/23/20 194 ADM IN [facility] [address] [place] [address]
--- NOTE | 2020-07-24 16:29 | NUR ---
Rec'd patient this am sitting up in a reclining w/c. She will look at you when you call her name.She takes her meds crushed and placed in food. She attempted to put multiple objects in her mouth and lick her fingers.She has a blue healing bruise to her left forehead. She has been sitting up in her reclining w/c and attempts to turn herself sideways in the chair. She has pressure sensitive alarm to her w/c. It is present and functioning. She has sat with the group but unable to participate.
--- NOTE | 2020-07-24 21:06 | NUR ---
PT IS ALERT AND ORIENTED TO SELF ONLY. POOR INSIGHT INTO HER SITUATION. GARBLED SPEECH. UNABLE TO FOLLOW COMMANDS. COMPLIANT WITH ALL MEDICATIONS. ASSISTED INTO BED. MONITOR FOR SAFETY. BED ALARM ON AND WORKING.
[2020-07-25 09:11] VITALS: BP 161/88
--- NOTE | 2020-07-25 12:43 | PN ---
PATIENT:GARRETT CLANCY MEDICAL RECORD: [id number] LOCATION:[facility] ADMISSION DATE: 07/10/20 PROGRESS NOTE DATE OF SERVICE: 07/24/2020 SUBJECTIVE: The patient's case was discussed with staff. She has no new complaint. OBJECTIVE: The patient is in good behavioral control with poor insight about her situation. She will be maintained on current medications. I anticipate she can be discharged soon. TRANSINT:[id number] Voice Confirmation ID: [id number] DOCUMENT ID: [id number] SENG HERNÁNDEZ MD at 1243 CC: [id number] DICTATION DATE: 07/24/20 1403 OUTSIDE SALESMAN: 07/24/20 1523 ADM IN [place] [id number] [place] [address]
--- NOTE | 2020-07-25 18:24 | NUR ---
ORIENTED TO SELF ONLY.COMPLIANT WITH MEDS.MEDS CRUSHED AND GIVEN IN PUDDING.SPOON FED PER STAFF.IS TOTALLY DEPENDANT ON STAFF FOR ADL.WILL EAT ANYTHING IN REACH,STYROFOAM,CHEWS ON HER CLOTHES,ETC.WILL CONTINUE WITH CURRENT PLAN OF CARE,MONITOR FOR CHANGES AND SAFETY.
[2020-07-25 20:48] VITALS: BP 119/96
--- NOTE | 2020-07-25 23:11 | NUR ---
PT IS ALERT AND ORIENTED TO SELF. POOR INSIGHT INTO SITUATION. RECEIVED IN A GERICHAIR OUTSIDE THE NURSES STATION. RESTLESS AT TIMES. COMPLIANT WITH ALL MEDICATIONS. ATTEMPTS TO EAT ANYTHING NEAR HER MOUTH. RESISTANT TO REDIRECTION. BED ALARM ON AND WORKING. MONITOR FOR SAFETY.
[2020-07-26 10:31] VITALS: BP 149/90
--- NOTE | 2020-07-26 14:30 | PN ---
PATIENT:GARRETT CLANCY MEDICAL RECORD: [id number] LOCATION:[facility] ADMISSION DATE: 07/10/20 PROGRESS NOTE DATE OF SERVICE: 07/25/2020 SUBJECTIVE: The patient's case was discussed with staff. She has no new complaint. OBJECTIVE: The patient denies intent to harm herself or others. She is tolerating her medicines well. ASSESSMENT: Dementia. PLAN: Current medicines have been reviewed and will be maintained. Long-term prognosis is guarded. TRANSINT:[id number] Voice Confirmation ID: [id number] DOCUMENT ID: [id number] SENG HERNÁNDEZ MD at 1430 CC: [id number] DICTATION DATE: 07/25/20 1346 SCREENING NURSE: 07/25/20 1428 ADM IN [place] [id number] [place] [id number]
--- NOTE | 2020-07-26 18:25 | NUR ---
ALERT, CALM, CONFUSED, COOPERATIVE. MEDS ADMIN PER ORDERS WITH COMPLETE MED COMPLIANCE NOTED. NO ADVERSE REACTION TO MEDS. APPETITE GOOD, CONTINUES TO ATTEMPT TO EAT NON-EDIBLE OBJECTS SUCH CUPS, NAPKINS, ETC., REQUIRING CLOSE SUPERVISION. NO AGGRESSION NOTED. CONTINUE POC DIRECTED.
--- NOTE | 2020-07-26 20:30 | NUR ---
RECEIVED IN RECLINER OUTSIDE OF NURSES STATION. SITTING CALMLY WITH EYES CLOSED. CALM AND COOPERATIVE WITH CARE AND ASSESSMENT. NO SIGNS OF AGGRESSION. REDIRECT AND REORIENT NEEDED. CONTINUES TO REST CALMLY IN HALLWAY. CONTINUE PLAN OF CARE.
[2020-07-27 08:00] VITALS: BP 118/73
--- NOTE | 2020-07-27 08:00 | NUR ---
Received patient sitting in reclining chair by the nurses station. Calm and cooperative with assessment at this time. Awake and alert to person only. Prescribed medications provided as ordered. Med compliant with meds crushed in applesauce. Patient is calm at this time. Redirect and reorient as needed. Fall precautions in place for safety. Will continue plan of care.
--- NOTE | 2020-07-27 11:01 | NUR ---
NUTRITION FOLLOW UP: COMMENTS: Patient eating well for meals and snacks. No recent significant wt changes. No new labs since 07/18. DIET: Regular Diet PO INTAKE: 60 points avg for last 9 meals, 100% x last 3 snacks WEIGHT: 07/26-136 lbs; 07/22-138 lbs BM: x 1 on 07/27 SIG MEDS: Vit B12, Senokot, Probiotic, Vit D, Miralax, Folic Acid SIG LABS: No new labs since 07/18 RECOMMENDATIONS: Continue Regular Diet as tolerated Offer nutritional supplements if PO intake becomes < 50% avg Assistance with meal as needed RD to re-assess patient on 07/29
--- NOTE | 2020-07-27 13:46 | PN ---
PATIENT:GARRETT CLANCY MEDICAL RECORD: [id number] LOCATION:[facility] ADMISSION DATE: 07/10/20 PROGRESS NOTE DATE OF SERVICE: 07/26/2020 SUBJECTIVE: The patient's case was discussed with staff. She has no new complaint. OBJECTIVE: The patient is in good behavioral control with limited insight about her situation. ASSESSMENT: Dementia. PLAN: Current medicines have been reviewed. Brief supportive and educational interventions were made. She may be transitioned out of the hospital soon if this level of improvement continues. TRANSINT:[id number] Voice Confirmation ID: [id number] DOCUMENT ID: [id number] SENG HERNÁNDEZ MD at 1346 CC: [id number] DICTATION DATE: 07/26/20 1404 POWER SHOVEL MECHANIC: 07/26/20 193 ADM IN [facility] [address] [place] [address]
--- NOTE | 2020-07-27 15:36 | NUR ---
CECELIA alerted family of discharge tomorrow to [facility]. Pt will be referred to [facility] for follow up care at [facility].
[2020-07-27] MEDS ORDERED: LISINOPRIL10 MG PO (15:49)
[2020-07-27] MEDS ORDERED: NAMENDA5 MG PO (15:50)
[2020-07-27] MEDS ORDERED: ACETAMINOPHEN325 MG PO (15:50)
[2020-07-27] MEDS ORDERED: ZOLOFT50 MG PO (15:51)
[2020-07-27] MEDS ORDERED: GEODON20 MG PO (15:51)
[2020-07-27] MEDS ORDERED: KLONOPIN0.5 MG PO (15:51)
[2020-07-27] MEDS ORDERED: VIGAMOX3 ML LEFT EYE (15:52)
[2020-07-27] MEDS ORDERED: FLORAJEN DIGES1 EACH PO (15:52)
[2020-07-27] MEDS ORDERED: LINZESS145 MCG PO (15:52)
[2020-07-27] MEDS ORDERED: VITAMIN B-12500 MCG PO (15:53)
[2020-07-27] MEDS ORDERED: Senokot TAB PO (15:53)
[2020-07-27] MEDS ORDERED: MUPIROCIN22 GM TOPICAL (15:53)
[2020-07-27 20:01] VITALS: BP 152/69
--- NOTE | 2020-07-27 20:50 | NUR ---
RECEIVED IN HALLWAY OUTSIDE OF NURSES STATION. RESTING QUIETLY WITH EYES OPEN. CALM AND COOPERATIVE WITH CARE AND ASSESSMENT. NO SIGNS OF AGGRESSION. REDIRECT AND REORIENT NEEDED. CONTINUES TO REST QUIETLY IN HALLWAY. CONTINUE PLAN OF CARE.
--- NOTE | 2020-07-28 08:26 | NUR ---
REC'D PATIENT SITTING RECLINING CHAIR IN HALLWAY BY NURSES STATION. CALM AND COOPERATIVE WITH ASSESSMENT AT THIS TIME. PATIENT IS CONFUSED AT THIS TIME. PATIENT HAS LITTLE TO NO INSIGHT INTO HIS SITUATION AT THIS TIME. PATIENT HAS A HARD TIME COMPREHENDING VERBAL INSTRUCTIONS. REDIRECT AND REORIENT NEEDED. FALL PRECAUTIONS IN PLACE FOR SAFETY. WILL CONTINUE PLAN OF CARE.
--- NOTE | 2020-07-28 11:00 | NUR ---
PATIENT DISCHARGED TO [facility]. TRANSPORTED VIA [facility]. DISCHARGE PAPERWORK FAXED AND HARD COPY SENT WITH PATIENT. PERSONAL BELONGINGS SENT WITH PATIENT.
--- NOTE | 2020-07-28 14:57 | PN ---
PATIENT:GARRETT CLANCY MEDICAL RECORD: [id number] LOCATION:[facility] ADMISSION DATE: 07/10/20 PROGRESS NOTE DATE OF SERVICE: 07/27/2020 SUBJECTIVE: The patient's case was discussed with staff. She has no new complaint. OBJECTIVE: The patient is oriented to person only. Her mood is flat. Her affect is generally appropriate. She has no thoughts of harming herself or others and has not been aggressive. She is eating and sleeping well. ASSESSMENT: Vascular dementia. PLAN: The patient will be transitioned out of the hospital tomorrow morning. She will be followed on an outpatient basis by her primary care custodial physician. TRANSINT:[id number] Voice Confirmation ID: [id number] DOCUMENT ID: [id number] SENG HERNÁNDEZ MD at 1457 CC: [id number] DICTATION DATE: 07/27/20 1544 UNIFORMER: 07/27/20 1558 DIS IN 07/28/20 [place] [id number] [place] [address]
--- NOTE | 2020-07-29 15:53 | DS ---
PATIENT:GARRETT CLANCY :46 MEDICAL RECORD: [id number] DISCHARGE SUMMARY ADMISSION DATE: 07/10/20 DISCHARGE DATE: 07/28/20 IDENTIFYING DATA: The patient is 70 years old. She was admitted to the hospital on a voluntary basis. CHIEF COMPLAINT: Aggression. HISTORY OF PRESENT ILLNESS: The patient lives in a [facility] in [place]. She has been aggressive with staff there, but has no real recollection of what she did or what she was reported to have done. She was clearly very impaired cognitively. HOSPITAL COURSE: The patient was admitted to the hospital and evaluated from both a medical, psychological, and social standpoint. She was treated with memory enhancing and mood stabilizing medications and showed an improvement in her underlying cognition. She was subsequently transitioned back to the [facility]dc. DISCHARGE DIAGNOSES: AXIS I: Vascular dementia. AXIS II: None. AXIS III: Hypertension, hypothyroidism, osteoarthritis, diabetes. AXIS IV: Moderate. AXIS V: Global assessment of functioning is 30. PLAN: At the time of discharge, the patient was in good behavioral control and had no thoughts of harming herself or others. She was tolerating her medicines well. Her long-term prognosis is guarded. TRANSINT:[id number] Voice Confirmation ID: [id number] DOCUMENT ID: [id number] SENG HERNÁNDEZ MD at 1553 CC: [id number] DICTATION DATE: 07/28/201652 LEAD ARCHITECT: 07/29/20 0029 DIS IN 07/28/20 [place] [address] [id number] [place] [address]
== END 2020-07-28 11:00 | DRG 884 ==
LOC: D.PSYCH 19:30
PROVIDERS: ADMIT Psychiatry & Neurology Psychiatry; ATTEND Psychiatry & Neurology Psychiatry
DX: F01.51 Vascular dementia, unspecified severity, with behavioral disturbance (principal); G45.9 Transient cerebral ischemic attack, unspecified; L03.113 Cellulitis of right upper limb; I10 Essential (primary) hypertension; F41.8 Other specified anxiety disorders; E03.9 Hypothyroidism, unspecified; M19.90 Unspecified osteoarthritis, unspecified site; I12.9 Hypertensive chronic kidney disease with stage 1 through stage 4 chronic kidney disease, or unspecified chronic kidney disease; N18.30 Chronic kidney disease, stage 3 unspecified; K59.00 Constipation, unspecified; E78.5 Hyperlipidemia, unspecified; E55.9 Vitamin D deficiency, unspecified; H10.9 Unspecified conjunctivitis; E53.8 Deficiency of other specified B group vitamins; R15.9 Full incontinence of feces; R32 Unspecified urinary incontinence